=== PATIENT | female | born 1955 | race Caucasian/White ===

== ENCOUNTER 2019-07-17 09:43 | Outpatient (CLI) | payer OTHER, SELFPAY ==
[2019-07-17 10:06] LABS: Basophils Percent Auto 0.4 % (0.2-1.2); Eosinophils Absolute Auto 0.3 K/mm3 (0-0.3); Eosinophils Percent Auto 2.6 % (0-4.4); Hematocrit 38.2 % (37.0-47.0); Hemoglobin 12.5 g/dL (12.0-15.0); Immature Granulocyte Absolute 0.04 K/mm3 (0.00-0.031); Immature Granulocyte Percent A 0.4 % (0-0.5); Lymphocytes Absolute Auto 3.17 K/mm3 (0.9-3.2); Mean Corpuscular HGB Conc 32.7 g/dl (32-36); Mean Corpuscular Hemoglobin 32.6 pg (26-34); Mean Corpuscular Volume 99.5 fl (80-100); Mean Platelet Volume 8.8 fl (7.4-10.4); Monocytes Absolute Auto 0.9 K/mm3 (0.1-0.6); Monocytes Percent Auto 8.4 % (2.6-8.5); Neutrophils Absolute Auto 6.2 K/mm3 (1.3-6.7); Neutrophils Percent Auto 58.2 % (45.5-73.1); Platelet Count Result 277 k/mm3 (150-375); Red Blood Count 3.84 M/mm3 (4.2-5.4); Red Cell Distribution Width 13.1 % (11.5-14.5); White Blood Count 10.6 K/mm3 (4.5-10.0)
[2019-07-17 10:22] LABS: Alanine Aminotransferase 10 U/L (4-35); Albumin Level 4.2 g/dL (3.5-5.1); Alkaline Phosphatase 57 U/L (38-126); Aspartate Amino Transferase 18 U/L (14-36); Bilirubin,Total 0.2 mg/dL (0.2-1.3); Blood Urea Nitrogen 9 mg/dL (7-17); Calcium 9.1 mg/dL (8.4-10.2); Carbon Dioxide 26 mmol/L (22-30); Chloride 106 mmol/L (98-107); Cholesterol 294 mg/dL (0-200); Estimated Glomerular Filt Rate > 60; Glucose 100 mg/dL (65-105); HDL Direct 32 mg/dL; Potassium 4.1 mmol/L (3.4-5.0); Sodium 137 mmol/L (137-145); Triglycerides 231 mg/dL (<150)
[2019-07-17 10:33] LABS: LDL Cholesterol Direct 200 mg/dL
[2019-07-17 10:36] LABS: Hemoglobin A1C 5.8 % (<5.7)
[2019-07-17 10:49] LABS: Creatinine Urine 54.4 mg/dL
[2019-07-17 10:55] LABS: MALB Creatinine Ratio 16.5 mg/g (0-30)
[2019-07-17 11:06] LABS: Vitamin D 25 Hydroxy 52.3 ng/mL
== END 2019-07-17 09:44 | disposition home or self-care (01) ==
PROVIDERS: PCP Internal Medicine; Visit Provider Internal Medicine
DX: I10 Essential (primary) hypertension (principal); E11.9 Type 2 diabetes mellitus without complications; E78.2 Mixed hyperlipidemia; E03.8 Other specified hypothyroidism; E06.3 Autoimmune thyroiditis; E55.9 Vitamin D deficiency, unspecified
CPT/HCPCS: 36415; 80053; 80061; 82043; 82306; 83036; 84443; 85025

== ENCOUNTER 2020-05-13 09:38 | Outpatient (CLI) | payer OTHER, SELFPAY ==
--- NOTE | ~2020-05-13 | MM_ITS ---
EXAMINATION: MM screening selma BI w lucina HISTORY: Screening TECHNIQUE: Craniocaudal and mediolateral oblique 3-D tomosynthesis images were obtained and synthetic 2-D images were generated. CAD analysis was submitted and interpreted. COMPARISON: Comparison to multiple prior studies sequentially, with oldest reviewed study dated 03/2010. BREAST PARENCHYMAL COMPOSITION: There are scattered areas of fibroglandular density. FINDINGS: There is no evidence of suspicious mass, calcification, or architectural distortion to sugg est malignancy in either breast. There has been no suspicious interval change. IMPRESSION: 1. No mammographic evidence of malignancy. 2. Recommend routine screening mammography in one year. BI-RADS Category 1: Negative Reviewed, dictated and finalized at location A. [employer] TEACHER
== END 2020-05-13 09:39 | disposition home or self-care (01) ==
LOC: ANHIMG 09:42
PROVIDERS: PCP Nurse Practitioner Family; Visit Provider Obstetrics & Gynecology
DX: Z12.31 Encounter for screening mammogram for malignant neoplasm of breast (principal)
CPT/HCPCS: 77063; 77067

== ENCOUNTER 2021-01-17 13:41 | Emergency (ER) | payer OTHER, SELFPAY ==
--- NOTE | ~2021-01-17 | CT_ITS ---
EXAMINATION: CT abdomen pelvis w con EXAM DATE: 01/17/2021 17:35 INDICATION: Right lower quadrant pain, hematochezia, cramping since Sunday. Nausea. TECHNIQUE: Spiral CT of the abdomen and pelvis was performed following intravenous injection of 100 m L Omnipaque 350. Axial, coronal and sagittal images of the abdomen and pelvis were reviewed. The do se-length product (DLP) for this examination was 696.41 mGy-cm. The exposure was tailored according to patient size (auto mA exposure control), and iterative reconstruction (ASIR) was used as additiona l dose reduction technique. There is no prior study for comparison. FINDINGS: The liver, spleen, adrenal glands and pancreas are unremarkable. Gallbladder is unremarkab le. No biliary obstruction. Portal and splenic veins are patent. Kidneys enhance symmetrically. T here is no hydronephrosis. There is a right renal cyst measuring 1.8 cm. The uterus is not identifie d and has likely been surgically resected. The bladder is unremarkable. There is no retroperitoneal or pelvic lymphadenopathy. There is mild to moderate scattered arteriosclerotic disease. The appendix is normal. There is mild to moderate sigmoid predominant colonic diverticulosis. There is no adjacent inflammatory change to suggest diverticulitis. The stomach and small bowel are unremar kable. There is expected amount of colonic stool. No free intraperitoneal gas. The heart is norm al in size. There are no pericardial or pleural effusions. The lung bases are unremarkable. There are no osteoblastic or osteolytic lesions identified. IMPRESSION: 1. No acute intra-abdominal findings. 2. Mild to moderate colonic diverticulosis. 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
[2021-01-17 14:00] VITALS: BP 132/72; PULSE 84; RESP 16; TEMP 36.9; O2SAT 98
[2021-01-17 14:37] LABS: Basophils Percent Auto 0.3 % (0.2-1.2); Eosinophils Absolute Auto 0.1 K/mm3 (0-0.3); Hematocrit 32.6 % (37.0-47.0); Hemoglobin 10.9 g/dL (12.0-15.0); Immature Granulocyte Absolute 0.02 K/mm3 (0.00-0.031); Immature Granulocyte Percent A 0.3 % (0-0.5); Lymphocytes Absolute Auto 2.65 K/mm3 (0.9-3.2); Lymphocytes Percent Auto 38.5 % (18.3-44.2); Mean Corpuscular HGB Conc 33.4 g/dl (32-36); Mean Corpuscular Hemoglobin 32.8 pg (26-34); Mean Corpuscular Volume 98.2 fl (80-100); Mean Platelet Volume 9.3 fl (7.4-10.4); Monocytes Absolute Auto 0.5 K/mm3 (0.1-0.6); Monocytes Percent Auto 7.1 % (2.6-8.5); Neutrophils Absolute Auto 3.6 K/mm3 (1.3-6.7); Neutrophils Percent Auto 51.8 % (45.5-73.1); Platelet Count Result 138 k/mm3 (150-375); Red Blood Count 3.32 M/mm3 (4.2-5.4); White Blood Count 6.9 K/mm3 (4.5-10.0)
[2021-01-17 14:52] LABS: Prothrombin Time 12.9 Seconds (11.1-14.7)
[2021-01-17 14:57] LABS: Alanine Aminotransferase 14 U/L (4-35); Albumin Level 4.5 g/dL (3.5-5.1); Alkaline Phosphatase 57 U/L (38-126); Anion Gap 12 mmol/L (8-16); Aspartate Amino Transferase 21 U/L (14-36); Bilirubin,Total 0.3 mg/dL (0.2-1.3); Blood Urea Nitrogen 15 mg/dL (7-17); Calcium 9.1 mg/dL (8.4-10.2); Carbon Dioxide 20 mmol/L (22-30); Chloride 108 mmol/L (98-107); Estimated CRCL calculation 85 ml/min; Estimated Glomerular Filt Rate > 60; Glucose 102 mg/dL (65-110); Potassium 4.1 mmol/L (3.4-5.0); Sodium 140 mmol/L (137-145)
[2021-01-17 16:25] VITALS: BP 124/63; PULSE 64
[2021-01-17 16:28] VITALS: BP 121/65; PULSE 66
[2021-01-17 16:30] VITALS: BP 134/76; PULSE 70
[2021-01-17 18:54] LABS: Thyroid Stimulating Hormone Reflex 0.215 uIU/mL (0.465-4.68)
--- NOTE | 2021-01-17 19:07 | ED.GENADULT ---
HPI - General Adult General Chief complaint: GI Bleed Stated complaint: RECTAL BLEEDING X4D Time Seen by Provider: 01/17/21 15:23 Source: patient Mode of arrival: ambulatory Limitations: no limitations History of Present Illness HPI narrative: Patient is 65-year-old female presented with chief complaint of bright red rectal bleeding that began on . Patient reports on she had 3 bowel movements that have bright red rectal blood. Patient reports that has decreased since that time and her last bowel movement was this morning which does have faint red blood with wiping. She reports that she has internal hemorrhoids which were noted on her colonoscopy performed by Dr. العراقي vp director of creative strategy at [facility]. Patient denies chest pain, shortness of breath, profuse bleeding from her rectum. She reports having some lower abdominal cramping and sensation of bloating. Patient denies any fevers, chills, nausea, vomiting, diarrhea. Patient reports she has a history of Chevy's and has felt fatigued, which she occasionally does during an episode. Patient reports that her thyroid function is managed by her primary care. Patient reports that she mention her bloody stools to her primary care today which directed her to the ER. 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 She reports she has not had any complications from these procedures. Related Data Home Medications Medication Instructions Recorded Confirmed aspirin 81 mg tablet,delayed 81 mg PO DAILY 01/06/19 release clonazepam 0.5 mg tablet 0.5 mg PO TID tablet 01/27/19 cholecalciferol (vitamin D3) 125 125 mcg PO DAILY 07/25/19 mcg (5,000 unit) capsule casanthranol-docusate sodium 30 cap PO 01/05/20 mg-100 mg capsule naproxen sodium PO 01/05/20 Allergies Allergy/AdvReac Type Severity Reaction Status Date / Time latex Allergy Unknown Swelling Verified 07/28/19 09:04 gluten Allergy Gastrointestinal Verified 01/05/20 12:51 Upset Sulfa (Sulfonamide AdvReac Unknown Dizziness Verified 01/17/21 16:45 Antibiotics) fluconazole [From Diflucan] AdvReac Other Verified 01/17/21 16:45 CYCLOBENZAPRINE HCL AdvReac Unknown Palpitation Uncoded 01/17/21 16:45 s Review of Systems Review of Systems: CONSTITUTIONAL: Denies fever, chills, or sweats. EYES: Denies visual changes, redness, or discharge. ENT: Denies rhinorrhea, congestion, sore throat, or otalgia. CARDIOVASCULAR: Denies chest pain, palpitations, or edema. RESPIRATORY: Denies cough or dyspnea. GASTROINTESTINAL: Reports abdominal pain and blood in stool, denies nausea, vomiting, or diarrhea. GENITOURINARY: Denies dysuria or hematuria. SKIN: Denies rash or itching. MUSCULOSKELETAL: Denies back pain, joint pain, or myalgia. NEUROLOGIC: Denies headache, numbness, dizziness, or weakness. PSYCHIATRIC: Denies anxiety or depression. [facility] Surgical History Surgical History History of hysterectomy History of rectal surgery History of thyroidectomy History of vaginal surgery Family History Family History Mother Family history of cardiac disorder Family history of mental disorder Depression Family history of cataracts Hypertension Family history of anemia Family history of arthritis Family history of atrial fibrillation Family history of congestive heart failure Cerebrovascular accident, Onset Age: 82 Sibling Family history of lupus erythematosus Family history of obesity Family history of mental disorder Family history of alcoholism Family history of malignant neoplasm of testis Father Family history of heart disease in male family member before age 55 Family history of cataracts Hypertension Acute myocardial infarction, Onset Age: 62 Grandparent Famil
[2021-01-17 19:30] LABS: Free T4 Free Thyroxine Reflex 1.53 ng/dL (0.78-2.19)
[2021-01-17 20:00] VITALS: BP 134/71; PULSE 69; RESP 18; O2SAT 100
[2021-01-17 20:25] LABS: Total Triiodothyronine (T3) 1.23 NG/ML (0.97-1.69)
== END 2021-01-17 20:01 | disposition home or self-care (01) ==
PROVIDERS: Physician Assistant; Emergency Provider Emergency Medicine; PCP Nurse Practitioner Family
DX: R19.5 Other fecal abnormalities (principal); E06.3 Autoimmune thyroiditis; F17.200 Nicotine dependence, unspecified, uncomplicated; Z79.82 Long term (current) use of aspirin
CPT/HCPCS: 36415; 74177; 80053; 84439; 84443; 84480; 85025; 85610; 85730; 86850; 86900; 86901; 99284; Q9967